=== PATIENT | female | born 1945 | race Caucasian/White ===

== ENCOUNTER → 2016-05-23 | Outpatient (CLI) | payer OTHER ==
[~2016-05-23] MED LIST: ACETAMINOPHEN PO; AMBIEN PO; ASPIRIN PO; ATIVAN PO; ATIVAN0.5 M1 PO; BENICAR PO; BENTYL20 MG PO; BP MED; CELEBREX PO; COREG PO; FLAX SEED OIL1000 M1 PO; GLUCOPHAGE850 MG PO; GLUCOVANCE 5/501 TA2 PO; GLYBURIDE METFORMIN PO; GLYBURIDE/METFORMIN PO; IMODIUM2 MG PO; JANUVIA PO; LEVOTHROID75 MCG PO; LIPITOR PO; LOSARTAN-HCTZ1 EACH PO; LOTREL 5/20 MG1 CAP PO; NEURONTIN300 MG PO; NEXIUM PO; PREMARIN PO; PRILOSEC OTC DAILY PO; PRILOSEC20 M1 PO; PRILOSEC20 MG PO; PROTONIX PO; QUESTRAN POWDE378 GM PO; REMERON15 MG PO; SIMVASTATIN20 MG PO; SYNTHROID PO; SYNTHROID0.05 MG PO; TEMAZEPAM PO; ZOCOR20 MG PO; ZOLPIDEM TARTRA10 M1 PO; [UNRECOGNIZED DRUG - OTHER]
--- NOTE | ~2016-05-23 | BD1 ---
[facility] A Service of [facility] RADIOLOGY TEXT RESULTS PATIENT: LARRY MENON LOCATION: [facility] : 41 UNIT #: [id number] AGE: [address]: LUPE VILLEDA APRN SEX: F ORDER DR: [id number] [facility] [address] [place], [place] [address] [id number] O MR#: [id number] Acc #: [id number] NAME: LARRY MENON : 1945 SEX: F STUDY DATE/TIME: 05/23/2016 10:37 UNIT: [facility] ROOM: STUDY DESCRIPTION: BD Dexa Bone Dens 1+ Site Attending Physician: Lupe Villeda M.D. Referring Physician: Lupe Villeda M.D. Ordering Physician: Lupe Villeda M.D. Primary Care Physician: Lupe Villeda M.D. MEDICAL IMAGING REPORT This report is preliminary unless electronic signature is present EXAM Bone density spine hip 05/23/2016 HISTORY Postmenopausal. Former smoker. Not current. TECHNIQUE Bone density scanning performed in the upper 4 lumbar vertebral segments and in the left forearm. The patient is 137-pound female, 71 years of age. Postmenopausal. COMPARISON 12/26/2012 FINDINGS L1-L4: Bone mineral density 1.258 g/cm sq for a T-score of 1.9 standard deviation above mean for a reference population normal young individuals and Z-score 4.2 standard deviations above mean for age-match population. Compared to 12/26/2012, there has been a 2.2% increase in bone mineral density in this region. This is felt to be statistically significant. In the left forearm radius one-third station bone mineral density 0.77 g/cm sq for a T-score 0.7 standard deviations above the mean for a reference population normal young individuals and Z-score 3.2 standard deviations above the mean for an age-matched population. Using total bone mineral density in the distal left forearm as a trending value there has been a 2.9% increase in bone mineral density in this region compared to 12/26/2012. This is felt to be statistically significant. IMPRESSION 1. Normal bone mineral density upper 4 lumbar vertebral segments and in STS. [facility] A Service of [facility] RADIOLOGY TEXT RESULTS PATIENT: LARRY MENON LOCATION: [facility] : 41 UNIT #: [id number] AGE: [address]: LUPE VILLEDA APRN SEX: F ORDER DR: the left forearm radius one-third station. Please correlate with the patient's clinical status. Continued surveillance is recommended. 2. Statistically significant increases in bone mineral density in the upper 4 lumbar vertebral segments overall and in the distal left forearm compared to December 2012. See data in body of report. Dictated by... Kurtis Costa M.D. THIS IS AN ELECTRONICALLY VERIFIED REPORT Kurtis Costa M.D. at 05/25/2016 8:44 PM PADMINI/mee TD: 05/24/2016 18:24 JOB #: [id number] MEDICAL IMAGING REPORT Page 1 of 1 COPY
--- NOTE | ~2016-05-23 | MY11 ---
[facility] A Service of [facility] RADIOLOGY TEXT RESULTS PATIENT: LARRY MENON LOCATION: [facility] : 41 UNIT #: [id number] AGE: [address]: LUPE VILLEDA APRN SEX: F ORDER DR: [id number] [facility] [address] [place], [place] [address] [id number] O MR#: [id number] Acc #: [id number] NAME: LARRY MENON : 1945 SEX: F STUDY DATE/TIME: 05/23/2016 10:46 UNIT: [facility] ROOM: STUDY DESCRIPTION: MY Mammogram Screening Dig Patrick Attending Physician: Lupe Villeda M.D. Referring Physician: Lupe Villeda M.D. Ordering Physician: Lupe Villeda M.D. Primary Care Physician: Lupe Villeda M.D. MEDICAL IMAGING REPORT This report is preliminary unless electronic signature is present EXAM Digital screening mammogram 05/23/2016, [facility]. HISTORY 71-year-old woman no risk elevation. Annual screening. COMPARISON Comparison mammograms 12/26/2012, 03/20/2014. TECHNIQUE Digital imaging of each breast was completed utilizing screening protocol. Review includes FDA-approved CAD device. FINDINGS Breast parenchyma is heterogeneous with residual fibroglandular opacities in each breast. I see no suspicious mass characteristics. There are no interval occurring microcalcifications and no architectural deformity. IMPRESSION Negative mammogram. Annual screening recommended. Patients over the age of 40 are entered into a reminder system with target due date for the next mammogram. A result letter will be sent to the patient. BIRADS: 1 Negative. Dictated by... Kenneth Freedman M.D. THIS IS AN ELECTRONICALLY VERIFIED REPORT Kenneth Freedman M.D. at 05/24/2016 8:06 AM JBB/murali [facility] A Service of [facility] RADIOLOGY TEXT RESULTS PATIENT: LARRY MENON LOCATION: [facility] #: [id number] : 41 UNIT #: [id number] AGE: [address]: LUPE VILLEDA APRN SEX: F ORDER DR: TD: 05/23/2016 15:52 JOB #: [id number] MEDICAL IMAGING REPORT Page 1 of 1 COPY
== END | disposition home or self-care (01) ==
LOC: CWCC 10:07
DX: Z12.31 Encounter for screening mammogram for malignant neoplasm of breast (principal); Z78.0 Asymptomatic menopausal state; E11.22 Type 2 diabetes mellitus with diabetic chronic kidney disease; N18.9 Chronic kidney disease, unspecified; Z88.0 Allergy status to penicillin; Z88.1 Allergy status to other antibiotic agents; Z88.8 Allergy status to other drugs, medicaments and biological substances
CPT/HCPCS: 77080; G0202